=== PATIENT | female | born 1975 | race Caucasian/White ===

== ENCOUNTER 2024-12-03 02:18 | Inpatient (IN) | payer BC, MEDICAID, OTHER ==
[~2024-12-03] VITALS: Ht 167.6 cm; Wt 69.5 kg
--- NOTE | 2024-12-03 02:40 | ED.PDOC ---
History of Present Illness HPI Comments 49 y/o F, with a Hx of NH s/p 2x cardiac ablations, lupus, ASA use, and cholecystectomy, is BIBA for c/o chest and back pain, nausea, vomiting, diaphoresis, and hot flashes, today. Per EMS report, patient endorses on sudden and unprovoked onset of symptoms that began with chest pain that radiates straight to her back, this morning. She comments on symptoms getting progressively worse since and rates pain as a 10/10 in severity and describes it as "crushing" in quality. En route, patient was stated to have been given 1x NTG and 4mg Zofran IV s/p IV access placement. 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 Burnett," and being on her menstrual period, currently. She denies having any palpitations, shortness of breath, dizziness, hematemesis, fever, chills, or other associated symptoms or modifiers at this time. Time Seen by MD: 02:25 Reviewed Notes: Nurses Notes, Tank Bottom Assembler Notes, Medications, Allergies Allergies: Coded Allergies: NO KNOWN ALLERGIES (Unverified , 12/03/24) Information Source: Emergency Med Personnel Mode of Arrival: EMS Severity: Moderate Timing: Hours Duration: Since onset Prehospital treatment: None Past Medical History PAST MEDICAL HISTORY: NH Past Medical History (Other): ASA use, lupus Surgical History: Cholecystectomy, (4x) Surgical History (Other): 2x cardiac ablations [employer] History: Denies all [employer] Hx LMP on menstrual cycle, currently Family History Family History: Unknown Social History Smoker: Non-Smoker Alcohol: Denies ETOH Use Drugs: Denies Drug Use Lives In: Home Constitutional: reports: diaphoresis, others (hot flashes ) Cardiovascular: reports: chest pain Gastrointestinal: reports: nausea, vomiting Musculoskeletal: reports: back pain All Other Systems: Reviewed and Negative (negative unless otherwise stated above or in HPI) Physical Exam General Appearance: No Apparent Distress, Normal HEENT: Normal ENT Inspection, Pharynx Normal, TMs Normal Neck: Full Range of Motion, Non-Tender, Normal, Normal Inspection Respiratory: Chest Non-Tender, Lungs Clear, No Accessory Muscle Use, No Respiratory Distress, Normal Breath Sounds Cardiovascular: No Edema, No JVD, No Murmur, No Gallop, Normal Peripheral Pulses, Regular Rate/Rhythm Breast Exam: Deferred Gastrointestinal: No Organomegaly, Non Tender, No Pulsatile Mass, Normal Bowel Sounds, Soft Genitalia: Deferred Pelvic: Deferred Rectal: Deferred Extremities: No calf tenderness, Normal capillary refill, Normal inspection, Normal range of motion, Non-tender, No pedal edema Musculoskeletal : Apperance: Normal Neurologic: Alert, 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 Was a procedure done?: No EKG EKG : Pulse Rate (adult): [address] [place]: Normal Cardiac Rhythm: NSR Block: None Hypertrophy: None ST: Normal Differential Dx Considerations may include: NH, PE, ACS, pericarditis, costochondritis, gastritis, gastroenteritis, angina, anxiety, viral syndrome, musculoskeletal pain X-Ray, Labs, Meds, VS Vital Signs Date Time Temp Pulse Resp B/P (MAP) Pulse Ox O2 Delivery O2 Flow Rate FiO2 12/03/24 03:15 69 12/03/24 02:40 70 12/03/24 02:23 77 12/03/24 02:23 98.6 77 19 126/91 (103) 100 12/03/24 02:20 70 Lab Test 12/03/24 03:34 12/03/24 02:35 Range/Units Sodium Level 137 136-145 mmol/L Potassium Level 4.4 3.5-5.1 mmol/L Chloride Level 107 98-107 mmol/L Carbon Dioxide Level 22 20-31 mmol/L Anion Gap 8 5-15 Blood Urea Nitrogen 12 9-23 mg/dL Creatinine 0.83 0.550-1.02 mg/dL Glomerular Filtration Rate Calc 87 >90 mL/min BUN/Creatinine Ratio 14.5 10.0-20.0 Serum Glucose 82 74-106 mg/dL Calcium Level 10.4 8.7-10.4 mg/dL Troponin I High Sensitivity 119 *H 88 *H </=34 ng/L White Blood Count 6.6 4.4-10.8 10^3/uL Red Blood Count 5.29 H 4.0-5.20 10^6/uL Hemoglobin 14.7 12.2-16.2 g/dL Hematocrit 43.5 36.0-46.0 % Mean Corpuscular Volume 82.3 80.0-100.0 fL Mean Corpuscular Hemoglobin 27.8 L 28.0-32.0 pg Mean Corpuscular Hemoglobin Concent 33.8 32.0-36.0 g/dL Red Cell Distribution Width 33.7 H 11.8-14.3 % Platelet Count 384 140-450 10^3/uL Mean Platelet Volume 8.8 6.9-10.8 fL Neutrophils (%) (Auto) 66.4 37.0-80.0 % Lymphocytes (%) (Auto) 21.1 10.0-50.0 % Monocytes (%) (Auto) 9.9 0.0-12.0 % Eosinophils (%) (Auto) 1.2 0.0-7.0 % Basophils (%) (Auto) 1.4 0.0-2.0 % Neutrophils # (Auto) 4.4 1.6-8.6 10 ^3/uL Lymphocytes # (Auto) 1.4 0.4-5.4 10 ^3/uL Monocytes # (Auto) 0.7 0-1.3 10 ^3/uL Eosinophils # (Auto) 0.1 0-0.8 10 ^3/uL Basophils # (Auto) 0.1 0-0.2 10 ^3/uL Nucleated Red Blood Cells 0.0 % Platelet Estimate Adequate Large Platelets Few Anisocytosis (manual) Moderate Target Cells Few Schistocytes Few B-Type Natriuretic Peptide 16.71 0-100 pg/mL Current Medications Medications (Trade) Dose Ordered Sig/[place] Route Start Time Stop Time Status Last Admin Famotidine (Pepcid Injection) 20 mg ONCE ONCE IV 12/03/24 02:30 12/03/24 02:31 DC 12/03/24 02:49 Ketorolac Tromethamine (Toradol Injection) 15 mg ONCE ONCE IV 12/03/24 02:30 12/03/24 02:31 DC 12/03/24 02:49 Ondansetron HCl (Zofran) 4 mg ONCE ONCE IV 12/03/24 02:30 12/03/24 02:31 DC 12/03/24 02:49 Time of 1ST Reevaluation: 02:55 Reevaluation 1ST: Unchanged Patient Education/Counseling: Diagnosis, Treatment Family Education/Counseling: No Family Present Comments The following tests were ordered, and results were reviewed by me: EKG, CXR, CBC, BMP, BNP, troponin Additional Information was gathered from interviewing the following independent historians: EMT I reviewed and agreed with the following test results read by other providers: CXR I discussed treatment and results with medical personnel Departure 1 Departure Time of Disposition: 04:33 (Patient presented with chest pain that was concerning for possible STEMI, ACS, PE, Pneumonia, Muscle Strain, COPD, D issection. Data: 1. I ordered and reviewed the result of at least 3 labs including a CBC, BMP, and Troponin. 2. I independently interpreted the following tests: EKG which shows _ sinus arrhythmia and Chest X-ray which shows benign chest.Risk:This patient has a high risk of morbidity due to further diagnostic testing or treatment and may suffer from an acute cardiac or respiratory d isorder. Workup reveals concern for ACS and patient should be admitted for further workup and possible expert consultation. ) Impression: Primary Impression: Acute chest pain Disposition: ADMITTED INPATIENT Admit to: Med Surg Condition: Serious Critical Care Note Critical Care Time?: No Stability Stability form required: No Heart Score Heart Score: Heart Score Response (Comments) Value History N/A 0 EKG N/A 0 Age 45-64 1 Risk Factors 1 or 2 risk factors 1 Troponin N/A 0 Total 2 I personally scribed for COOKIE WAGGONER MD ([email or web address]) on 12/03/24 at 02:40. Electronically submitted by Riley Crook ([email or web address]). COOKIE WAGGONER MD Dec 03, 2024 02:40
[2024-12-03 02:48] LABS: Basophils # (auto) 0.1 10 ^3/uL (0-0.2); Basophils % (auto) 1.4 % (0.0-2.0); Eosinophils # (auto) 0.1 10 ^3/uL (0-0.8); Eosinophils % (auto) 1.2 % (0.0-7.0); Hematocrit 43.5 % (36.0-46.0); Hemoglobin 14.7 g/dL (12.2-16.2); Lymphocytes # (auto) 1.4 10 ^3/uL (0.4-5.4); Lymphocytes % (auto) 21.1 % (10.0-50.0); Mean Corpuscular Hemoglobin 27.8 pg (28.0-32.0); Mean Corpuscular Hgb Conc. 33.8 g/dL (32.0-36.0); Mean Corpuscular Volume 82.3 fL (80.0-100.0); Monocytes # (auto) 0.7 10 ^3/uL (0-1.3); Monocytes % (auto) 9.9 % (0.0-12.0); Neutrophils # (auto) 4.4 10 ^3/uL (1.6-8.6); Neutrophils % (auto) 66.4 % (37.0-80.0); Platelet Count (auto) 384 10^3/uL (140-450); Red Blood Cells 5.29 10^6/uL (4.0-5.20); White Blood Cell 6.6 10^3/uL (4.4-10.8)
[2024-12-03] MEDS: ONDANSETRON HCL 4 MG/2 ML VIAL IV ONE ×2 (02:49→04:52)
[2024-12-03] MEDS: KETOROLAC TROMETH 30 MG/ML 1ML VIAL IV ONE (02:49)
[2024-12-03] MEDS: FAMOTIDINE (10MG/ML) 2ML VL IV ONE (02:49)
[2024-12-03 02:53] LABS: Red Cell Distribution Width 33.7 % (11.8-14.3)
[2024-12-03 04:23] LABS: Chloride 107 mmol/L (98-107); Potassium 4.4 mmol/L (3.5-5.1); Sodium 137 mmol/L (136-145)
[2024-12-03 04:24] LABS: Anion Gap 8 (5-15); Calcium 10.4 mg/dL (8.7-10.4); Carbon Dioxide 22 mmol/L (20-31)
[2024-12-03 04:26] LABS: Anisocytosis Moderate; Large Platelets FEW; Platelet Estimate Adequate; Target Cell FEW
[2024-12-03 04:29] LABS: BUN/Creatinine Ratio 14.5 (10.0-20.0); Blood Urea Nitrogen 12 mg/dL (9-23); Glucose 82 mg/dL (74-106)
[2024-12-03] MEDS: MORPHINE SULFATE 4 MG/ML SYR/VIAL IV ONE (04:52)
--- NOTE | 2024-12-03 06:02 | DVH ---
CHEST RADIOGRAPH Indication: Chest pain Technique: Single frontal view of the chest was obtained Comparison: None FINDINGS: Lines and Tubes: None Lungs: No focal consolidation. Pleura: No effusion. No pneumothorax. Cardiomediastinal contours: Unremarkable Bones: No acute osseous abnormality. IMPRESSION: 1. No acute cardiopulmonary disease.
[2024-12-03] MEDS: ENOXAPARIN SOD 100 MG/1 ML SYRINGE SC ONE (06:34)
--- NOTE | 2024-12-03 06:41 | ECG ---
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
--- NOTE | 2024-12-03 06:41 | ECG ---
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
--- NOTE | 2024-12-03 06:41 | ECG ---
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
[2024-12-03] MEDS ORDERED: NITROGLYCERIN 0.4 MG SL TAB SL PRN (07:30)
[2024-12-03] MEDS: SODIUM CHLORIDE 0.9% 1,000 ML IV SCH (07:30)
--- NOTE | 2024-12-03 07:34 | DVHHP2 ---
History of Present Illness Reason for Visit: Chest pain History of Present Illness Shelby Bassett is a 49 year female with past medical history of hyperlipidemia, CA in 2021 status post cardiac ablation x2 1 at [facility] and the other at [facility] several months within 1 another, lupus, cholecystectomy, tonsillectomy, and who presents to the ED for chest pain, palpitations, nausea, vomiting, and diaphoresis x2 days. Patient states that the pain started around 3:30 p.m. yesterday when she was running errands and she suddenly became dizzy it was midsternal, crushing in nature intermittent in 10/10 pain. Patient reports that the pain did not radiate anywhere. Patient has also reports that around 730-8 p.m. that night she started to have nausea and vomiting with food contents. Patient then had her spouse call EMS. Patient also states that the cardiac ablation that was done was because she was in [facility] and repeated because the 1st was unsuccessful. Patient denies any recent sick contacts, trauma or injury, abdominal pain, diarrhea, fever, chills, and headaches. Upon examination in the ED, current pain is 9/10 "feels like bricks are sitting on my chest" hand is constant. Patient reports that her left lower extremity does get more edematous than her right but upon examination no swelling noted. Patient states that is because she took her Lasix. Cardiovascular: CA, hyperipidemia Past Medical History Lupus Past Surgical History: Cholecystectomy, , Other (Cardiac ablation) Family History: Other (Mom and dad with heart disease) Smoke: No ALCOHOL: none Drugs: None Lives: with Family Domestic Violence: Neg Review of Systems Constitutional: Yes: Sweats; No: Fever, Chills, Weakness, Malaise, Other Eyes: No: Pain, Vision change, Conjunctivae inflammation, Eyelid inflammation, Other, Redness ENT: No: Ear pain, Ear discharge, Nose pain, Nose discharge, Nose congestion, Mouth pain, Mouth swelling, Throat pain, Throat swelling, Other Respiratory: No: Cough, Dry, Shortness of breath, SOB with excertion, Wheezing, Hemoptysis, Pleuritic Pain, Sputum, Wheezing, Other Cardiovascular: Chest Pain, Palpitations; No: Orthopnea, Paroxysmal Noc. Dyspnea, Edema, Lt Headedness, Other Gastrointestinal: Nausea, Vomiting; No: Abdominal Pain, Diarrhea, Constipation, Melena, Hematochezia, Other Genitourinary: No Dysuria, No Frequency, No Incontinence, No Hematuria, No Retention, No Other Musculoskeletal: No: other, neck pain, shoulder pain, arm pain, back pain, hand pain, leg pain, foot pain Skin: No: Rash, Lesions, Jaundice, Bruising, Other Neurological: No: Weakness, Numbness, Incoordination, Change in speech, Confusion, Seizures, Other Allergies: Coded Allergies: NO KNOWN ALLERGIES (Unverified , 12/03/24) Medications Current Medications Medications Dose Ordered Sig/[place] Route Start Time Stop Time Status Last Admin Dose Admin Sodium Chloride 1,000 ml @ 60 mls/hr [id number] IV 12/03/24 07:30 UNV Acetaminophen/ Hydrocodone Bitart 1 tab Q4HP PRN PO 12/03/24 07:30 UNV Ondansetron HCl 4 mg Q4HP PRN IV 12/03/24 07:30 UNV Acetaminophen 650 mg Q6HP PRN PO 12/03/24 07:30 UNV Morphine Sulfate 2 mg Q4HPRN PRN IV 12/03/24 07:30 UNV Nitroglycerin 0.4 mg Q5MINP PRN SL 12/03/24 07:30 UNV Morphine Sulfate 2 mg Q30M PRN IV 12/03/24 07:30 UNV Exam Vital Signs Vital Signs Date Time Temp Pulse Resp B/P (MAP) Pulse Ox O2 Delivery O2 Flow Rate FiO2 12/03/24 06:09 Room Air* 0 21 12/03/24 06:00 67 14 118/85 (96) 97 12/03/24 02:23 98.6 General Appearance: Alert, Oriented X3, Cooperative, mild distress HEENT: Atraumatic, PERRLA, EOMI, Mucous membr. moist/pink Respiratory: Clear to auscultation, Normal air movement Cardiovascular: Regular rate, Normal S1, Normal S2, No murmurs Abdominal: Normal bowel sounds, Soft, No tenderness, No hepatospenomegaly, No masses Extremities: No clubbing, No cyanosis, No edema, Normal pulses, No tenderness/swelling Skin: No rashes, No breakdown, No significant lesion Neuro: Normal gait, Normal speech, Strength at 5/5 X4 ext, Normal tone, Sensation intact Psych/Mental Status: Mental status NL, Mood NL Labs/Xrays Labs Test 12/03/24 05:35 12/03/24 03:34 12/03/24 02:35 Range/Units Troponin I High Sensitivity 168 *H </=34 ng/L Sodium Level 137 136-145 mmol/L Potassium Level 4.4 3.5-5.1 mmol/L Chloride Level 107 98-107 mmol/L Carbon Dioxide Level 22 20-31 mmol/L Anion Gap 8 5-15 Blood Urea Nitrogen 12 9-23 mg/dL Creatinine 0.83 0.550-1.02 mg/dL Glomerular Filtration Rate Calc 87 >90 mL/min BUN/Creatinine Ratio 14.5 10.0-20.0 Serum Glucose 82 74-106 mg/dL Calcium Level 10.4 8.7-10.4 mg/dL White Blood Count 6.6 4.4-10.8 10^3/uL Red Blood Count 5.29 H 4.0-5.20 10^6/uL Hemoglobin 14.7 12.2-16.2 g/dL Hematocrit 43.5 36.0-46.0 % Mean Corpuscular Volume 82.3 80.0-100.0 fL Mean Corpuscular Hemoglobin 27.8 L 28.0-32.0 pg Mean Corpuscular Hemoglobin Concent 33.8 32.0-36.0 g/dL Red Cell Distribution Width 33.7 H 11.8-14.3 % Platelet Count 384 140-450 10^3/uL Mean Platelet Volume 8.8 6.9-10.8 fL Neutrophils (%) (Auto) 66.4 37.0-80.0 % Lymphocytes (%) (Auto) 21.1 10.0-50.0 % Monocytes (%) (Auto) 9.9 0.0-12.0 % Eosinophils (%) (Auto) 1.2 0.0-7.0 % Basophils (%) (Auto) 1.4 0.0-2.0 % Neutrophils # (Auto) 4.4 1.6-8.6 10 ^3/uL Lymphocytes # (Auto) 1.4 0.4-5.4 10 ^3/uL Monocytes # (Auto) 0.7 0-1.3 10 ^3/uL Eosinophils # (Auto) 0.1 0-0.8 10 ^3/uL Basophils # (Auto) 0.1 0-0.2 10 ^3/uL Nucleated Red Blood Cells 0.0 % Platelet Estimate Adequate Large Platelets Few Anisocytosis (manual) Moderate Target Cells Few Schistocytes Few B-Type Natriuretic Peptide 16.71 0-100 pg/mL CHEST RADIOGRAPH Indication: Chest pain Technique: Single frontal view of the chest was obtained Comparison: None FINDINGS: Lines and Tubes: None Lungs: No focal consolidation. Pleura: No effusion. No pneumothorax. Cardiomediastinal contours: Unremarkable Bones: No acute osseous abnormality. IMPRESSION: 1. No acute cardiopulmonary disease. Assessment/Plan Assessment/Plan Assessment/Plan: Chest pain rule out cardiac ischemia Elevated troponins History of CA in 2021 History of cardiac ablation x2 Lovenox therapeutic given in ED Chest x-ray Antiemetics Pain management Labs A.m. labs Famotidine RBC morph EKG Trend troponin BNP UDS Lipid panel TSH Echo ordered Cardiology consult acs protocol asa statin - patient takes 80mg atorvastatin at home JACKIE Angio scheduled for tomorrow morning per Cardiology Chronic lupus Continue home medications-gabapentin, lisinopril and Benlysta Chronic hyperlipidemia continue home medications, atorvastatin FEN/PPX diet IV fluid DVT prophylaxis - lovenox therapeutic per cards PUD prophylaxis-continue home medication, Protonix home medications reconciled discussed plan of care with patient and nurse Admit to tele Plan discussed with: Patient My Orders Orders - JASON FOOTE Procedure Category Date Status Time * Cardiology Consult CONS 12/03/24 Transmitted 06:58 Admit ADMIT 12/03/24 Transmitted 07:28 Allergies NICHOLAS 12/03/24 In Process 07:28 Code Status CODE 12/03/24 Transmitted 07:28 Sodium Chloride 0.9% PHA 12/03/24 Logged 07:30 Hydrocodone-Acet PHA 12/03/24 Logged 5/325mg Tab ([place] 07:30 Ondansetron Hcl PHA 12/03/24 Logged (Zofran) 07:30 Complete Blood Count LAB 12/04/24 Verified 04:00 Comprehensive LAB 12/04/24 Verified Metabolic Panel 04:00 Npo (Nothing By DIET 12/03/24 Transmitted Mouth) Diet Breakfast Echo 2d Mode Cardiac US 12/03/24 Logged DOP 07:28 Acetaminophen Tablet PHA 12/03/24 Logged (Tylenol Tablet) 07:30 Morphine Sulfate PHA 12/03/24 Logged Injection 07:30 Nitroglycerin [facility] 12/03/24 Logged Sublingual (Ntrostat 07:30 Morphine Sulfate PHA 12/03/24 Logged Injection 07:30 Stat Ekg For Chest [facility] 12/03/24 In Process Pain 07:28 Notify Of Changes [facility] 12/03/24 In Process From Base 07:28 Lift Team Technician For [facility] 12/03/24 In Process 24 Hours 07:28 Emergency Dysrhythmia [facility] 12/03/24 In Process Protocol 07:28 Rhythm Strips Once [facility] 12/03/24 In Process Every Shift 07:28 Oxygen By Nasal RT 12/03/24 Transmitted Cannula 07:28 Drug Screen LAB 12/03/24 Transmitted 07:29 Thyroid Stimulating LAB 12/03/24 Transmitted Hormone 07:29 Lipid Panel LAB 12/03/24 Transmitted 07:29 Date of Service: Dec 03, 2024 Billing Provider: JASON FOOTE Common Visit Codes: [id number] INP/OBS CARE (HIGH) JASON FOOTE Dec 03, 2024 07:34
[2024-12-03 07:50] LABS: Triglycerides 83 mg/dL (< 150)
[2024-12-03 07:52] LABS: Cholesterol 188 mg/dL (< 200)
[2024-12-03 07:54] LABS: HDL Cholesterol 70 mg/dL (40-59); LDL Cholesterol 107 mg/dL (< 100)
[2024-12-03] MEDS ORDERED: GABA800T97 (08:00)
[2024-12-03] MEDS ORDERED: PANT40T (08:00)
[2024-12-03] MEDS ORDERED: FURO20TA4 (08:00)
[2024-12-03] MEDS ORDERED: BELI200I (08:00)
[2024-12-03] MEDS ORDERED: LISI2.5T47 (08:00)
[2024-12-03] MEDS ORDERED: ASPI1CHW5 PO (08:00)
[2024-12-03] MEDS ORDERED: ATOR-47 PO (08:00)
[2024-12-03] MEDS: ASPirin 325 MG TAB PO ONE (09:00)
[2024-12-03] MEDS: ONDANSETRON HCL 4 MG/2 ML VIAL IV PRN (09:08)
[2024-12-03] MEDS: MORPHINE SULFATE INJ 2 MG/ml SYRG IV PRN (09:08)
[2024-12-03] MEDS: ENOXAPARIN SOD 100 MG/1 ML SYRINGE SC SCH (10:00)
[2024-12-03] MEDS: ASPirin 81 mg TAB PO SCH (10:00)
[2024-12-03 10:16] LABS: Amphetamine Screen, Urine Neg (NEGATIVE); Barbiturate Scree,Urine Neg (NEGATIVE); Benzodiazephine Screen, Urine Neg (NEGATIVE); Cannabinoid Screen, Urine Neg (NEGATIVE); Cocaine Screen, Urine Neg (NEGATIVE); Opiate Scree,Urine Pos (NEGATIVE); Phencyclidine Screen, Urine Neg (NEGATIVE)
--- NOTE | 2024-12-03 11:10 | DVHINCON2 ---
Date of service: Dec 03, 2024 History of Present Illness HPI Patient is a 49-year-old female who presented with 1 day of chest discomfort, nausea/vomiting and back pain. She is experiencing her menstrual period. She denies having/discomforts before. Cardiology was involved for cardiac catheterization with self-care. Patient is known to our practice from outside. Patient does have old history of repeated PVC ablation many years ago. She also had a nuclear stress test in August 2023 which questioned inferior wall NM. she stopped smoking over 15 years ago. She denies drug abuse. Home Meds Reported Medications Lisinopril (Lisinopril) 2.5 Mg Tab, 1 DAILY 12/03/24 Atorvastatin Calcium (ATORVASTATIN CALCIUM) 80 Mg Tab, 1 TAB PO DAILY 12/03/24 Gabapentin (Gabapentin) 800 Mg Tab, 1 12/03/24 Belimumab (Benlysta) 200 Mg/Ml Inj 12/03/24 Aspirin (Chewable Aspirin) 81 Mg Chw, 1 TAB PO DAILY 12/03/24 Furosemide (Furosemide) 20 Mg Tab, 1 DAILY 12/03/24 Pantoprazole Sodium Sesquihydr (Pantoprazole Sodium) 40 Mg Tab, 1 DAILY 12/03/24 Past Medical History Others Past medical history includes lupus, old history of repeated ablation for frequent PVC, old history of cholecystectomy/, fibromyalgia, anemia, proteinuria and questionable history of myocardial infarction (nuclear stress t est, performed in the office, in August 2023 had questioned previous inferior wall NM). Does have positive family for coronary artery disease. Family History: CAD Smoker: Quit Alocohol: None Drugs: None Lives with: With family Review of Systems Pulmonary/Respiratory: Dyspnea, Pleuritic Chest Pain Cardiovascular: Chest Pain Gastrointestinal: Nausea, Vomiting All Other Systems Fourteen point review of system was performed. Relevant findings as per above and as per HPI. Otherwise negative. H&P Exam Vital Signs Vital Signs Date Time Temp Pulse Resp B/P (MAP) Pulse Ox O2 Delivery O2 Flow Rate FiO2 12/03/24 09:42 69 12 116/77 (90) 97 12/03/24 06:09 Room Air* 0 12/03/24 02:23 98.6 General Appeara: Well developed Head Exam: Normal inspection Eye Exam: bilateral eye PERRL Mouth: Normal Inspection Pulmonary/Respiratory: Normal breath sounds, Lungs clear Cardiovascular/Chest: Normal inspection, Regular rate, Systolic murmur Peripheral Pulses: 2+ carotid (R), 2+ carotid (L), 2+ femoral (R), 2+ femoral (L), 2+ dorsalis pedis (R), 2+ dorsalis pedis (L), 2+ Radial (R), 2+ Radial (L) Abdominal Exam: Normal bowel sounds, Soft, No tenderness, No hepatospenomegaly Neuro/Mental St: Alert, Oriented Appearance: Appropriate appearance Eye contact/ Speech: Cooperative Labs/Xrays Labs Test 12/03/24 09:40 12/03/24 05:35 12/03/24 03:34 12/03/24 02:35 Range/Units Urine Opiates Screen Pos NEGATIVE Urine Fentanyl Screen Neg NEGATIVE Urine Barbiturates Screen Neg NEGATIVE Urine Phencyclidine Screen Neg NEGATIVE Urine Amphetamines Screen Neg NEGATIVE Urine Benzodiazepines Screen Neg NEGATIVE Urine Cocaine Screen Neg NEGATIVE Urine Cannabinoids Screen Neg NEGATIVE D-Dimer, Quantitative 0.43 0.0-0.49 mg/L FEU Troponin I High Sensitivity 168 *H </=34 ng/L Sodium Level 137 136-145 mmol/L Potassium Level 4.4 3.5-5.1 mmol/L Chloride Level 107 98-107 mmol/L Carbon Dioxide Level 22 20-31 mmol/L Anion Gap 8 5-15 Blood Urea Nitrogen 12 9-23 mg/dL Creatinine 0.83 0.550-1.02 mg/dL Glomerular Filtration Rate Calc 87 >90 mL/min BUN/Creatinine Ratio 14.5 10.0-20.0 Serum Glucose 82 74-106 mg/dL Calcium Level 10.4 8.7-10.4 mg/dL Triglycerides Level 83 < 150 mg/dL Cholesterol Level 188 < 200 mg/dL LDL Cholesterol 107 H < 100 mg/dL HDL Cholesterol 70 H 40-59 mg/dL Thyroid Stimulating Hormone (TSH) 1.96 0.55-4.78 uIU/mL White Blood Count 6.6 4.4-10.8 10^3/uL Red Blood Count 5.29 H 4.0-5.20 10^6/uL Hemoglobin 14.7 12.2-16.2 g/dL Hematocrit 43.5 36.0-46.0 % Mean Corpuscular Volume 82.3 80.0-100.0 fL Mean Corpuscular Hemoglobin 27.8 L 28.0-32.0 pg Mean Corpuscular Hemoglobin Concent 33.8 32.0-36.0 g/dL Red Cell Distribution Width 33.7 H 11.8-14.3 % Platelet Count 384 140-450 10^3/uL Mean Platelet Volume 8.8 6.9-10.8 fL Neutrophils (%) (Auto) 66.4 37.0-80.0 % Lymphocytes (%) (Auto) 21.1 10.0-50.0 % Monocytes (%) (Auto) 9.9 0.0-12.0 % Eosinophils (%) (Auto) 1.2 0.0-7.0 % Basophils (%) (Auto) 1.4 0.0-2.0 % Neutrophils # (Auto) 4.4 1.6-8.6 10 ^3/uL Lymphocytes # (Auto) 1.4 0.4-5.4 10 ^3/uL Monocytes # (Auto) 0.7 0-1.3 10 ^3/uL Eosinophils # (Auto) 0.1 0-0.8 10 ^3/uL Basophils # (Auto) 0.1 0-0.2 10 ^3/uL Nucleated Red Blood Cells 0.0 % Platelet Estimate Adequate Large Platelets Few Anisocytosis (manual) Moderate Target Cells Few Schistocytes Few B-Type Natriuretic Peptide 16.71 0-100 pg/mL Assessment/Plan Plan Patient is a 49-year-old female who presented with 1 day of chest discomfort, nausea/vomiting and back pain. She is experiencing her menstrual period. She denies having/discomforts before. Cardiology was involved for cardiac catheterization with self-care. Patient is known to our practice from outside. Patient does have old history of repeated PVC ablation many years ago. She also had a nuclear stress test in August 2023 which questioned inferior wall NM. she stopped smoking over 15 years ago. She denies drug abuse. She has been experiencing left lower extremity pain and discomfort and swelling for months. Not in acute distress. Lying flat bed. No JVD. Mucosa is pink and wet. No carotid bruit. Not using accessory muscles of breathing. Lungs are clear to auscultation. Cardiac: Regular, no thrill/gallop. Systolic murmur in the apex is heard. Abdomen is soft. There is no tenderness. Bowel sound is positive. Extremities do not reveal edema. Past medical history includes lupus, old history of repeated ablation for frequent PVC, old history of cholecystectomy/, fibromyalgia, anemia, proteinuria and questionable history of myocardial infarction (nuclear stress test, performed in the office, in August 2023 had questioned previous inferior wall NM). Does have positive family for coronary artery disease. Creatinine: 0.83 Potassium: 4.4 Troponin (high sensitive): 88-119-168 BNP: 16.71 D-dimer: 0.43 TSH: 1.96 Urine toxicology was positive for opiates Chest x-ray revealed: EKG revealed sinus rhythm with questionable old septal NM, no specific ST-T changes Tele reveals sinus rhythm Patient is a 49-year-old female who presented with back pain, chest pain, nausea and vomiting. Does have old history of questionable myocardial infarction. Does have positive family history for coronary artery disease. It is of note that the patient does have lupus and gets IVIG treatment every 2 weeks. She is found to have somehow abnormal troponin. NSTEMI/unstable angina can not be ruled out. Chest pain Abnormal troponin Lupus Fibromyalgia Old history of PVC ablation Anemia Proteinuria Cardiac suggestion for management: Managed on telemetry Follow-up electrolytes and kidney function tests and correct abnormalities Echocardiogram Followups serial troponin to identify the peak May proceed with ischemic workup/cardiac catheterization tomorrow morning Further evaluation and management depends on the above and clinical course Thank you for consultation A total of 75 minutes was spent reviewing the patient record, examining the patient, making a diagnostic and therapeutic plan, discussing this plan with medical personnel, following up on diagnostic studies and following the patient for clinical stability excluding any and all procedures. At least 50% of this time was spent in direct, [id number] contact. Thank you for allowing me to participate in this patient's care. Further recommendations will depend on patient's clinical course. Please do not hesitate to contact me if you have any questions or concerns. This medical document was created using electronic medical record system with [employer] computerized dictation system. Although this document has been carefully reviewed, there may still be some phonetic and typographical errors. These areas are purely typographical due to the imperfection of the software programs, and do not reflect any compromise in the patient's medical care. Plan discussed with: Patient, Other (nurse) JEFFREY RUDOLPH MD Dec 03, 2024 11:10
--- NOTE | 2024-12-03 11:36 | DVHPN2 ---
Subjective c/o CP Changes from previous H/P or p: Changes Eyes: No Pain, No Vision change, No Conjunctivae inflammation, No Eyelid inflammation, No Other, No Redness ENT: No Ear pain, No Ear discharge, No Nose pain, No Nose discharge, No Nose congestion, No Mouth pain, No Mouth swelling, No Throat pain, No Throat swelling, No Other Cardiovascular: Chest Pain, Palpitations; No Orthopnea, No Paroxysmal Noc. Dyspnea, No Edema, No Lt Headedness, No Other Respiratory: No Cough, No Dry, No Shortness of breath, No SOB with excertion, No Wheezing, No Hemoptysis, No Pleuritic Pain, No Sputum, No Other Gastrointestinal: Nausea, Vomiting; No Abdominal Pain, No Diarrhea, No Constipation, No Melena, No Hematochezia, No Other Genitourinary: No Dysuria, No Frequency, No Incontinence, No Hematuria, No Retention, No Other Musculoskeletal: No other, No neck pain, No shoulder pain, No arm pain, No back pain, No hand pain, No leg pain, No foot pain Skin: No Rash, No Lesions, No Jaundice, No Bruising, No Other Objective Vitals Vital Signs Date Time Temp Pulse Resp B/P (MAP) Pulse Ox O2 Delivery O2 Flow Rate FiO2 12/03/24 10:43 67 11 103/61 12/03/24 09:42 97 12/03/24 06:09 Room Air* 0 21 12/03/24 02:23 98.6 General Appearance: Alert, Oriented X3, Cooperative, No acute distress Lungs: Clear to auscultation, Normal air movement Cardiovascular: Regular rate, Normal S1, Normal S2 Abdomen: Normal bowel sounds, Soft, No tenderness Extremities: No edema Medications Current Medications Medications Dose Ordered Sig/Frederick Route Start Time Stop Time Status Last Admin Dose Admin Sodium Chloride 1,000 ml @ 60 mls/hr [id number] IV 12/03/24 07:30 12/03/24 07:30 60 MLS/HR Acetaminophen/ Hydrocodone Bitart 1 tab Q4HP PRN PO 12/03/24 07:30 Ondansetron HCl 4 mg Q4HP PRN IV 12/03/24 07:30 12/03/24 09:08 4 MG Acetaminophen 650 mg Q6HP PRN PO 12/03/24 07:30 Morphine Sulfate 2 mg Q4HPRN PRN IV 12/03/24 07:30 Nitroglycerin 0.4 mg Q5MINP PRN SL 12/03/24 07:30 Morphine Sulfate 2 mg Q30M PRN IV 12/03/24 07:30 12/03/24 09:08 2 MG Aspirin 81 mg DAILY PO 12/03/24 10:00 Atorvastatin Calcium 80 mg HS PO 12/03/24 22:00 Enoxaparin Sodium 60 mg Q12HR SC 12/03/24 10:00 12/03/24 10:00 60 MG Duloxetine HCl 60 mg BID PO 12/03/24 22:00 UNV Laboratory Results Laboratory Tests 12/03/24 02:35 12/03/24 03:34 Chemistry Test 12/03/24 03:34 Calcium Level 10.4 mg/dL (8.7-10.4) Coagulation Test 12/03/24 05:35 D-Dimer, Quantitative 0.43 mg/L FEU (0.0-0.49) Lipid panel Test 12/03/24 03:34 Cholesterol Level 188 mg/dL (< 200) HDL Cholesterol 70 mg/dL (40-59) H Triglycerides Level 83 mg/dL (< 150) Cardiac Markers Test 12/03/24 02:35 B-Type Natriuretic Peptide 16.71 pg/mL (0-100) HgA1c, TSH Test 12/03/24 03:34 Thyroid Stimulating Hormone (TSH) 1.96 uIU/mL (0.55-4.78) Assessment/Plan Assessment/Plan Chest pain NSTEMI type 2 Lupus Fibromyalgia [place] Cardiac ablation x2 Mixed hyperlipidemia PLAN: DC IV fluids Aspirin Lipitor Duloxetine Tazodone Gabapentin Echo Cardiology consult D-Dimer neg Possible heart cath by Dr. Moss Full code Advance directives discussed x 18 minutes Plan discussed with: Patient My Orders Orders - JAYJAY GAONA MD Procedure Category Date Status Time Duloxetine Hcl PHA 12/03/24 Logged Capsule (Cymbalta 22:00 Duloxetine Hcl PHA 12/03/24 Logged Capsule (Cymbalta 11:15 Date of Service: Dec 03, 2024 Billing Provider: JAYJAY GAONA MD Common Visit Codes: 02310-[id number] INP/OBS CARE(HIGH) Secondary Visit Codes: [id number] CARE PLAN 30 MINUTES JAYJAY GAONA MD Dec 03, 2024 11:35
[2024-12-03] MEDS: DULoxetine HCL 30 MG CAP PO ONE (12:36)
[2024-12-03 15:10] VITALS: BP 128/94; PULSE 70; RESP 18; TEMP 98.6; O2SAT 99
[2024-12-03] MEDS ORDERED: TRAZ1TAB12 PO (15:37)
[2024-12-03] MEDS ORDERED: HYDR-4491 PO (15:37)
[2024-12-03] MEDS ORDERED: HYDR-4798 PO (15:38)
--- NOTE | 2024-12-03 16:17 | DVHSR ---
APPROVED REPORT EXAM: Two-dimensional and M-mode echocardiogram with Doppler and color Doppler. Blood Pressure: 118/85 mmHg INDICATION Chest Pain RISK FACTORS Height: 66, Weight: 141 DIMENSIONS LVDd4.2 (3.8-5.7cm)LA (2D)3.9 (1.9-4.0cm)Aortic Root2.9 (2.0-3.7cm) LVDs2.8 (2.5-4.0cm)LA (MM) (1.9-4.0cm)Aortic Cusp Exc1.6 (1.5-2.0cm) EF (%) 65.0 (55-70%)Rt. Atrium3.9 (1.9-4.0cm)Asc. Aorta2.6 cm IVSd0.9 (0.7-1.1cm)RV (D) (1.8-2.4cm) PWd0.9 (0.7-1.1cm) Mitral Valve MitralMitral Stenosis E wave0.52m/sMV Mean GR.mmHg A wave0.54m/sMV Peak GR.mmHg E/A ratio1.02D MVAcm2 DECEL [id number] 1/2 [id number] IVRTmsDop MVA1.75cm2 Aortic Valve Aortic ValveAortic Stenosis V10.80m/Dimple Mean GR.2mmHg V20.94m/Dimple Peak GR.4mmHg LVOT Diameter2.1 (1.8-2.4cm)Doppler AVA2.95cm2 Pulmonic Valve V20.73m/s Conclusion Left ventricle: Right ventricle was normal-sized. LVEF was around 55-60%. Can not rule out anteros eptal hypokinesia. Right ventricle was normal-sized with normal systolic function. Both atria were normal-sized. Aortic valve was not well visualized. There was no aortic insufficiency/stenosis. There was no mitr al regurgitation. There was trivial tricuspid regurgitation. Pulmonary valve was not well visualize d. As there was no good tricuspid regurgitation jet, right ventricular systolic pressure could not be es timated. There was no pericardial effusion.
[2024-12-03 17:00] VITALS: BP 110/72; PULSE 68; RESP 19; TEMP 98.6; O2SAT 98
[2024-12-03] MEDS: GABAPENTIN 400 MG CAP PO SCH (17:14)
[2024-12-03 20:00] VITALS: PULSE 65
[2024-12-03] MEDS: traZODone HCL 50 MG TAB PO SCH (21:31)
[2024-12-03] MEDS: ACETAMINOPHEN 325 MG TAB PO PRN (21:31)
[2024-12-03] MEDS: ATORVASTATIN 20 MG TAB PO SCH (21:38)
[2024-12-03] MEDS: DULoxetine HCL 30 MG CAP PO SCH (21:38)
[2024-12-03 22:00] VITALS: BP 126/91; PULSE 76; RESP 18; TEMP 98.1; O2SAT 97
[2024-12-04] VITALS (13 sets, daily range): BP systolic 85–115; BP diastolic 54–79; PULSE 63–97; RESP 13–18; TEMP 97.8–98.3; O2SAT 94–98
[2024-12-04] MEDS: MORPHINE SULFATE INJ 2 MG/ml SYRG IV PRN (05:40)
[2024-12-04 06:49] LABS: Albumin 4.1 g/dL (3.2-4.8); Alkaline Phosphatase 87 U/L (46-116); Anion Gap 7 (5-15); BUN/Creatinine Ratio 20.7 (10.0-20.0); Blood Urea Nitrogen 18 mg/dL (9-23); Calcium 9.7 mg/dL (8.7-10.4); Carbon Dioxide 23 mmol/L (20-31); Glucose 78 mg/dL (74-106); Sodium 137 mmol/L (136-145)
[2024-12-04 06:50] LABS: Total Protein 7.1 g/dL (5.7-8.2)
[2024-12-04 06:51] LABS: Bilirubin, Total 0.5 mg/dL (0.2-1.0)
[2024-12-04 06:52] LABS: INR 1.03 (0.9-1.15); Partial Thromboplastin Time 21.9 SEC (24.5-34.5); Prothrombin Time 10.9 sec (9.3-11.8)
[2024-12-04 07:04] LABS: Alanine Aminotransferase 45 U/L (7-40); Aspartate Aminotransferase 44 U/L (13-40); Chloride 107 mmol/L (98-107)
[2024-12-04 07:09] LABS: Basophils # (auto) 0.1 10 ^3/uL (0-0.2); Eosinophils # (auto) 0 10 ^3/uL (0-0.8); Eosinophils % (auto) 0.7 % (0.0-7.0); Hematocrit 47.3 % (36.0-46.0); Hemoglobin 15.5 g/dL (12.2-16.2); Lymphocytes # (auto) 1.5 10 ^3/uL (0.4-5.4); Mean Corpuscular Hemoglobin 28.2 pg (28.0-32.0); Mean Corpuscular Hgb Conc. 32.8 g/dL (32.0-36.0); Mean Corpuscular Volume 85.9 fL (80.0-100.0); Monocytes # (auto) 0.6 10 ^3/uL (0-1.3); Monocytes % (auto) 9.2 % (0.0-12.0); Neutrophils % (auto) 65.1 % (37.0-80.0); Nucleated Red Blood Cells % 0.2 %; Platelet Count (auto) 166 10^3/uL (140-450); Red Blood Cells 5.51 10^6/uL (4.0-5.20); Red Cell Distribution Width 31.7 % (11.8-14.3); White Blood Cell 6.2 10^3/uL (4.4-10.8)
[2024-12-04] MEDS: IODIXANOL 320MG/ML 100ML BTL IV ONE ×2 (07:39→09:12)
--- NOTE | 2024-12-04 07:50 | DVHPN2 ---
Progress Note - Dictate Date Seen: Dec 04, 2024 Medical Necessity Reason Pt with a Central, PICC or Fol: No vital signs Vital Sign Date Time Temp Pulse Resp B/P (MAP) Pulse Ox O2 Delivery O2 Flow Rate FiO2 12/04/24 05:40 87 18 113/79 12/04/24 05:00 97.9 95 97.9 12/03/24 20:00 Room Air* 0 21 Total Intake and Output 12/03/24 12/03/24 12/04/24 15:00 23:00 07:00 Intake Total 380 ml 0 ml Balance 380 ml 0 ml medications Current Medications Medications Dose Ordered Sig/Frederick Route Start Time Stop Time Status Last Admin Dose Admin Acetaminophen/ Hydrocodone Bitart 1 tab Q4HP PRN PO 12/03/24 07:30 Ondansetron HCl 4 mg Q4HP PRN IV 12/03/24 07:30 12/04/24 05:37 4 MG Acetaminophen 650 mg Q6HP PRN PO 12/03/24 07:30 12/03/24 21:31 650 MG Morphine Sulfate 2 mg Q4HPRN PRN IV 12/03/24 07:30 12/04/24 05:40 2 MG Nitroglycerin 0.4 mg Q5MINP PRN SL 12/03/24 07:30 Morphine Sulfate 2 mg Q30M PRN IV 12/03/24 07:30 12/03/24 17:14 2 MG Aspirin 81 mg DAILY PO 12/03/24 10:00 Atorvastatin Calcium 80 mg HS PO 12/03/24 22:00 Enoxaparin Sodium 60 mg Q12HR SC 12/03/24 10:00 12/03/24 10:00 60 MG Duloxetine HCl 60 mg BID PO 12/03/24 22:00 Trazodone HCl 150 mg HS PO 12/03/24 22:00 12/03/24 21:31 150 MG Gabapentin 800 mg TID PO 12/03/24 14:00 12/03/24 17:14 800 MG laboratory and microbiology Laboratory Tests 12/04/24 06:00 Test 12/04/24 06:00 Range/Units Serum Glucose 78 74-106 mg/dL Assessment/Plan Patient is a 49-year-old female who presented with 1 day of chest discomfort, nausea/vomiting and back pain. She is experiencing her menstrual period. She denies having/discomforts before. Cardiology was involved for cardiac catheterization with self-care. Patient is known to our practice from outside. Patient does have old history of repeated PVC ablation many years ago. She also had a nuclear stress test in August 2023 which questioned inferior wall [place]. she stopped smoking over 15 years ago. She denies drug abuse. She has been experiencing left lower extremity pain and discomfort and swelling for months. Not in acute distress. Lying flat bed. No JVD. Mucosa is pink and wet. No carotid bruit. Not using accessory muscles of breathing. Lungs are clear to auscultation. Cardiac: Regular, no thrill/gallop. Systolic murmur in the apex is heard. Abdomen is soft. There is no tenderness. Bowel sound is positive. Extremities do not reveal edema. Past medical history includes lupus, old history of repeated ablation for frequent PVC, old history of cholecystectomy/, fibromyalgia, anemia, proteinuria and questionable history of myocardial infarction (nuclear stress test, performed in the office, in August 2023 had questioned previous inferior wall [place]). Does have positive family for coronary artery disease. Creatinine: 0.83 - 0.87 Potassium: 4.4 - 4.0 Troponin (high sensitive): 88 - 119 - 168 - 230 - 260 - 265 BNP: 16.71 D-dimer: 0.43 TSH: 1.96 Urine toxicology was positive for opiates D-dimer: 0.43 Chest x-ray revealed: IMPRESSION: 1. No acute cardiopulmonary disease. EKG revealed sinus rhythm with questionable old septal [place], no specific ST-T changes Tele reveals sinus rhythm Echocardiogram revealed: Left ventricle: Right ventricle was normal-sized. LVEF was around 55-60%. Can not rule out anteroseptal hypokinesia. Right ventricle was normal-sized with normal systolic function. Both atria were normal-sized. Aortic valve was not well visualized. There was no aortic insufficiency/stenosis. There was no mitral regurgitation. There was trivial tricuspid regurgitation. Pulmonary valve was not well visualized. As there was no good tricuspid regurgitation jet, right ventricular systolic pressure could not be estimated. There was no pericardial effusion. Patient is a 49-year-old female who presented with back pain, chest pain, nausea and vomiting. Does have old history of questionable myocardial infarction. Does have positive family history for coronary artery disease. It is of note that the patient does have lupus and gets IVIG treatment every 2 weeks. She is found to have somehow abnormal troponin. NSTEMI/unstable angina can not be ruled out. Chest pain Abnormal troponin non-stemi Lupus Fibromyalgia Old history of PVC ablation Anemia Proteinuria Cardiac suggestion for management: Managed on telemetry Follow-up electrolytes and kidney function tests and correct abnormalities cardiac catheterization Further evaluation and management depends on the above and clinical course A total of 55 minutes was spent reviewing the patient record, examining the patient, making a diagnostic and therapeutic plan, discussing this plan with medical personnel, following up on diagnostic studies and following the patient for clinical stability excluding any and all procedures. At least 50% of this time was spent in direct, [id number] contact. Thank you for allowing me to participate in this patient's care. Further recommendations will depend on patient's clinical course. Please do not hesitate to contact me if you have any questions or concerns. This medical document was created using electronic medical record system with [employer] computerized dictation system. Although this document has been carefully reviewed, there may still be some phonetic and typographical errors. These areas are purely typographical due to the imperfection of the software programs, and do not reflect any compromise in the patient's medical care. Plan discussed with: Patient, Other (nurse) JEFFREY RUDOLPH MD Dec 04, 2024 07:50
[2024-12-04] MEDS: VERAPAMIL 2.5MG/ML INJ 2ML VIAL IV ONE (08:53)
[2024-12-04] MEDS: ANGIOMAX 250 MG VIAL IV ONE (08:53)
[2024-12-04] MEDS: fentaNYL CITRATE 100 MCG/2 ML VL ONE ×2 (08:53→09:23)
[2024-12-04] MEDS: MIDAZOLAM HCL 2MG/2ML 2ml VIAL (1mg/ml) ONE ×2 (08:53→09:24)
[2024-12-04] MEDS: LIDOCAINE 2%HCL (LOCAL ANESTH.) INJ 20ML MDV ONE (08:54)
[2024-12-04] MEDS: SODIUM CHL 0.9% 0 ML ONE (08:54)
[2024-12-04] MEDS: HYDROmorphone HCL 2 MG/ML VL/or syr ONE (09:23)
[2024-12-04 09:37] LABS: Anisocytosis Moderate
[2024-12-04 09:38] LABS: Large Platelets FEW; Platelet Estimate Adequa
--- NOTE | 2024-12-04 10:00 | DVHOP2 ---
Operative Report Procedures performed: Left heart catheterization and bilateral coronary angiogram Moderate sedation Diagnosis: No angiographic evidence for epicardial coronary artery disease (normal coronaries) LVEF of 55% with normal EDP Cardiac suggestion for management: Optimized medical therapy Lifestyle and risk factor modifications Findings: LVEF: 55% EDP: 4 mm Hg There was no transaortic valve pressure gradient Left main: Left main was coming off the left sinus of Valsalva. There was no angiographic evidence of disease in left main. LAD: LAD was coming off the left main. It provided a large D1, small D2 and medium-sized D3. LAD throughout its course and branches did not reveal any angiographic evidence of disease. It was somehow tortuous. LCX: LCX was a large caliber vessel coming off the left main. It continued itself as a large obtuse marginal. LCX throughout its course and branches did not reveal any angiographic evidence of disease. RCA: RCA was coming off the right sinus of Valsalva. It was the dominant vessel and provided RPDA. RCA throughout its course and branches did not reveal any angiographic evidence of disease. Presentation: Patient is a 49-year-old female who presented to the hospital with chest discomfort. Does have history of lupus and degenerative disc disease. There is question if patient had myocardial infarction before. High sensitive Troponin was mildly elevated and there was a question about non- STEMI/unstable angina. Patient was sent for cardiac catheterization. Procedure: After obtaining informed consent, the patient was brought to the laborer beam house. She was prepped and draped in sterile fashion. Right radial artery was used for access site. 1 mg of Versed and 50 mcg of fentanyl were used for moderate sedation. Using modified Seldinger technique, the right radial artery was accessed and a 6 Telugu slender sheath was inserted into it. 2.5 mg of verapamil and 100 mcg of nitroglycerin were given as a cocktail into right radial sheath. 3600 units of heparin was given peripherally. A 5 Telugu tiger 4 diagnostic catheter was used to perform left heart catheterization (obtaining pressures and performing left ventriculography) and left coronary angiography. We did use different catheters to access the right coronary artery. Rindge 4 diagnostic catheter and JR4 diagnostic catheter were unsuccessful to access the right coronary system. We were successful to use 3DRC (6 Telugu) catheter for nonselective coronary angiography (right coronary). There was no indication for any transcatheter revascularization. There was no dissection/hematoma/perforati on. Patient tolerated the procedure with no complication. Right radial artery access site was managed by deploying a TR band. Fluoroscopy time: 7.1 minutes contrast: 60 mL of JEFFREY Elliott MD Dec 04, 2024 10:00
[2024-12-04] MEDS: HEPARIN SODIUM (PORCINE) 5000 UNITS/ML 1ML VIAL ONE (10:14)
--- NOTE | 2024-12-04 10:25 | DVHPN2 ---
Subjective Status post heart catheterization negative Changes from previous H/P or p: Changes Eyes: No Pain, No Vision change, No Conjunctivae inflammation, No Eyelid inflammation, No Other, No Redness ENT: No Ear pain, No Ear discharge, No Nose pain, No Nose discharge, No Nose congestion, No Mouth pain, No Mouth swelling, No Throat pain, No Throat swelling, No Other Cardiovascular: Chest Pain, Palpitations; No Orthopnea, No Paroxysmal Noc. Dyspnea, No Edema, No Lt Headedness, No Other Respiratory: No Cough, No Dry, No Shortness of breath, No SOB with excertion, No Wheezing, No Hemoptysis, No Pleuritic Pain, No Sputum, No Other Gastrointestinal: Nausea, Vomiting; No Abdominal Pain, No Diarrhea, No Constipation, No Melena, No Hematochezia, No Other Genitourinary: No Dysuria, No Frequency, No Incontinence, No Hematuria, No Retention, No Other Musculoskeletal: No other, No neck pain, No shoulder pain, No arm pain, No back pain, No hand pain, No leg pain, No foot pain Skin: No Rash, No Lesions, No Jaundice, No Bruising, No Other Objective Vitals Vital Signs Date Time Temp Pulse Resp B/P (MAP) Pulse Ox O2 Delivery O2 Flow Rate FiO2 12/04/24 09:00 98.2 97 16 85/54 (64) 94 98.2 12/03/24 20:00 Room Air* 0 21 Intake/Output Intake and Output 12/04/24 07:00 Intake Total 380 ml Balance 380 ml Intake Oral 380 ml # Voids 6 General Appearance: Alert, Oriented X3, Cooperative, No acute distress Lungs: Clear to auscultation, Normal air movement Cardiovascular: Regular rate, Normal S1, Normal S2 Abdomen: Normal bowel sounds, Soft, No tenderness Extremities: No edema Medications Current Medications Medications Dose Ordered Sig/Frederick Route Start Time Stop Time Status Last Admin Dose Admin Acetaminophen/ Hydrocodone Bitart 1 tab Q4HP PRN PO 12/03/24 07:30 Ondansetron HCl 4 mg Q4HP PRN IV 12/03/24 07:30 12/04/24 05:37 4 MG Acetaminophen 650 mg Q6HP PRN PO 12/03/24 07:30 12/03/24 21:31 650 MG Morphine Sulfate 2 mg Q4HPRN PRN IV 12/03/24 07:30 12/04/24 05:40 2 MG Nitroglycerin 0.4 mg Q5MINP PRN SL 12/03/24 07:30 Morphine Sulfate 2 mg Q30M PRN IV 12/03/24 07:30 12/03/24 17:14 2 MG Aspirin 81 mg DAILY PO 12/03/24 10:00 Atorvastatin Calcium 80 mg HS PO 12/03/24 22:00 Duloxetine HCl 60 mg BID PO 12/03/24 22:00 Trazodone HCl 150 mg HS PO 12/03/24 22:00 12/03/24 21:31 150 MG Gabapentin 800 mg TID PO 12/03/24 14:00 12/03/24 17:14 800 MG Colchicine 0.6 mg DAILY PO 12/04/24 10:15 UNV Laboratory Results Laboratory Tests 12/04/24 06:00 Chemistry Test 12/04/24 06:00 Albumin 4.1 g/dL (3.2-4.8) Calcium Level 9.7 mg/dL (8.7-10.4) Total Protein 7.1 g/dL (5.7-8.2) Coagulation Test 12/04/24 06:00 Prothrombin Time 10.9 sec (9.3-11.8) Prothrombin Time INR 1.03 (0.9-1.15) Activated Partial Thromboplast Time 21.9 SEC (24.5-34.5) L LFT Test 12/04/24 06:00 Alanine Aminotransferase (ALT) 45 U/L (7-40) H Alkaline Phosphatase 87 U/L (46-116) Aspartate Amino Transferase (AST) 44 U/L (13-40) H Total Bilirubin 0.5 mg/dL (0.2-1.0) Assessment/Plan Assessment/Plan Chest pain NSTEMI type 2 Lupus Fibromyalgia [place] Cardiac ablation x2 Mixed hyperlipidemia PLAN: 12/03/2024: DC IV fluids Aspirin Lipitor Duloxetine Tazodone Gabapentin Echo Cardiology consult D-Dimer neg Possible heart cath by Dr. Moss Full code Advance directives discussed x 18 minutes 12/04/2024: Heart catheterization was normal no coronary disease Medical management is advised Aspirin Lipitor Hypotension: Blood pressure is on the low side, give IV fluids overnight Monitor closely overnight and check her creatinine in the morning Plan discussed with: Patient My Orders Orders - JAYJAY GAONA MD Procedure Category Date Status Time Duloxetine Hcl PHA 12/03/24 In Process Capsule (Cymbalta 22:00 Trazodone Hcl PHA 12/03/24 In Process (Desyrel) 22:00 Gabapentin Capsule PHA 12/03/24 In Process (Neurontin Capsule) 14:00 Date of Service: Dec 04, 2024 Billing Provider: JAYJAY GAONA MD Common Visit Codes: [id number] INP/OBS CARE(HIGH) JAYJAY GAONA MD Dec 04, 2024 10:25
[2024-12-04] MEDS: SODIUM CHLORIDE 0.9% 1,000 ML IV SCH (10:30)
[2024-12-04] MEDS: COLCHICINE 0.6 MG CAP PO SCH (12:16)
[2024-12-04] MEDS: HYDROcodone-ACET 5/325MG TAB PO PRN (17:32)
[2024-12-05] VITALS (9 sets, daily range): BP systolic 92–117; BP diastolic 60–77; PULSE 60–90; RESP 17–18; TEMP 97.7–98.1; O2SAT 95–99
[2024-12-05 07:16] LABS: Albumin 4.1 g/dL (3.2-4.8); Alkaline Phosphatase 82 U/L (46-116); Anion Gap 6 (5-15); Aspartate Aminotransferase 38 U/L (13-40); BUN/Creatinine Ratio 19.1 (10.0-20.0); Bilirubin, Total 0.4 mg/dL (0.2-1.0); Blood Urea Nitrogen 17 mg/dL (9-23); Calcium 9.4 mg/dL (8.7-10.4); Carbon Dioxide 25 mmol/L (20-31); Chloride 105 mmol/L (98-107); Glucose 82 mg/dL (74-106); Sodium 136 mmol/L (136-145); Total Protein 6.8 g/dL (5.7-8.2)
[2024-12-05 07:18] LABS: Alanine Aminotransferase 42 U/L (7-40)
--- NOTE | 2024-12-05 07:40 | DVHPN2 ---
Progress Note - Dictate Date Seen: Dec 05, 2024 Medical Necessity Reason Pt with a Central, PICC or Fol: No vital signs Vital Sign Date Time Temp Pulse Resp B/P (MAP) Pulse Ox O2 Delivery O2 Flow Rate FiO2 12/05/24 06:08 82 20 93/63 12/05/24 05:00 97.8 97 97.8 12/04/24 20:00 Room Air* 0 21 Total Intake and Output 12/04/24 12/04/24 12/05/24 14:59 22:59 06:59 Intake Total 350 ml 0 ml Balance 350 ml 0 ml medications Current Medications Medications Dose Ordered Sig/Frederick Route Start Time Stop Time Status Last Admin Dose Admin Acetaminophen/ Hydrocodone Bitart 1 tab Q4HP PRN PO 12/03/24 07:30 12/04/24 17:32 1 TAB Ondansetron HCl 4 mg Q4HP PRN IV 12/03/24 07:30 12/05/24 06:07 4 MG Acetaminophen 650 mg Q6HP PRN PO 12/03/24 07:30 12/04/24 12:15 650 MG Morphine Sulfate 2 mg Q4HPRN PRN IV 12/03/24 07:30 12/05/24 06:08 2 MG Nitroglycerin 0.4 mg Q5MINP PRN SL 12/03/24 07:30 Morphine Sulfate 2 mg Q30M PRN IV 12/03/24 07:30 12/04/24 19:01 2 MG Aspirin 81 mg DAILY PO 12/03/24 10:00 Atorvastatin Calcium 80 mg HS PO 12/03/24 22:00 12/04/24 21:23 80 MG Duloxetine HCl 60 mg BID PO 12/03/24 22:00 12/04/24 21:23 60 MG Trazodone HCl 150 mg HS PO 12/03/24 22:00 12/04/24 21:23 150 MG Gabapentin 800 mg TID PO 12/03/24 14:00 12/05/24 05:34 800 MG Colchicine 0.6 mg DAILY PO 12/04/24 10:15 12/04/24 12:16 0.6 MG Sodium Chloride 1,000 ml @ 60 mls/hr [id number] IV 12/04/24 10:30 12/04/24 10:30 60 MLS/HR laboratory and microbiology Laboratory Tests 12/05/24 06:11 12/04/24 06:00 Test 12/05/24 06:11 Range/Units Serum Glucose 82 74-106 mg/dL Assessment/Plan Patient is a 49-year-old female who presented with 1 day of chest discomfort, nausea/vomiting and back pain. She is experiencing her menstrual period. She denies having/discomforts before. Cardiology was involved for cardiac catheterization with self-care. Patient is known to our practice from outside. Patient does have old history of repeated PVC ablation many years ago. She also had a nuclear stress test in August 2023 which questioned inferior wall [place]. she stopped smoking over 15 years ago. She denies drug abuse. She has been experiencing left lower extremity pain and discomfort and swelling for months. Not in acute distress. Lying flat bed. No JVD. Mucosa is pink and wet. No carotid bruit. Not using accessory muscles of breathing. Lungs are clear to auscultation. Cardiac: Regular, no thrill/gallop. Systolic murmur in the apex is heard. Abdomen is soft. There is no tenderness. Bowel sound is positive. Extremities do not reveal edema. Past medical history includes lupus, old history of repeated ablation for frequent PVC, old history of cholecystectomy/, fibromyalgia, anemia, proteinuria and questionable history of myocardial infarction (nuclear stress test, performed in the office, in August 2023 had questioned previous inferior wall [place]). Does have positive family for coronary artery disease. Creatinine: 0.83 - 0.87 - 0.89 Potassium: 4.4 - 4.0 - 4.0 Troponin (high sensitive): 88 - 119 - 168 - 230 - 260 - 265 BNP: 16.71 D-dimer: 0.43 TSH: 1.96 Urine toxicology was positive for opiates D-dimer: 0.43 Chest x-ray revealed: IMPRESSION: 1. No acute cardiopulmonary disease. EKG revealed sinus rhythm with questionable old septal [place], no specific ST-T changes Tele reveals sinus rhythm Echocardiogram revealed: Left ventricle: Right ventricle was normal-sized. LVEF was around 55-60%. Can not rule out anteroseptal hypokinesia. Right ventricle was normal-sized with normal systolic function. Both atria were normal-sized. Aortic valve was not well visualized. There was no aortic insufficiency/stenosis. There was no mitral regurgitation. There was trivial tricuspid regurgitation. Pulmonary valve was not well visualized. As there was no good tricuspid regurgitation jet, right ventricular systolic pressure could not be estimated. There was no pericardial effusion. Left heart cath was performed and ruled out significant coronary artery disease. Cardiac suggestion for management: Optimized medical therapy Lifestyle and risk factor modifications Patient is a 49-year-old female who presented with back pain, chest pain, nausea and vomiting. Does have old history of questionable myocardial infarction. Does have positive family history for coronary artery disease. It is of note that the patient does have lupus and gets IVIG treatment every 2 weeks. She is found to have somehow abnormal troponin. NSTEMI/unstable angina were ruled out after LHC. Chest pain Abnormal troponin non-stemi Lupus Fibromyalgia Old history of PVC ablation Anemia Proteinuria Cardiac suggestion for management: Optimized medical therapy Follow-up electrolytes and kidney function tests and correct abnormalities To add Colchicine Cardiac tran, can be followed as outpatient. Further evaluation and management depends on the above and clinical course A total of 55 minutes was spent reviewing the patient record, examining the patient, making a diagnostic and therapeutic plan, discussing this plan with medical personnel, following up on diagnostic studies and following the patient for clinical stability excluding any and all procedures. At least 50% of this time was spent in direct, [id number] contact. Thank you for allowing me to participate in this patient's care. Further recommendations will depend on patient's clinical course. Please do not hesitate to contact me if you have any questions or concerns. This medical document was created using electronic medical record system with [employer] computerized dictation system. Although this document has been carefully reviewed, there may still be some phonetic and typographical errors. These areas are purely typographical due to the imperfection of the software programs, and do not reflect any compromise in the patient's medical care. Plan discussed with: Patient, Other (nurse) JEFFREY RUDOLPH MD Dec 05, 2024 07:40
--- NOTE | 2024-12-05 11:02 | ECG ---
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
--- NOTE | 2024-12-05 11:02 | ECG ---
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
--- NOTE | 2024-12-05 11:02 | ECG ---
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
[2024-12-05] MEDS ORDERED: COLC1CAP PO (12:54)
--- NOTE | 2024-12-05 12:58 | DVHDS2 ---
Discharge Summary Date of Admission Dec 03, 2024 at 07:28 Date of Discharge: Dec 05, 2024 Labs/Diagnostic Data: Laboratory Results Test 12/05/24 06:11 12/04/24 06:00 12/03/24 17:56 12/03/24 09:40 Sodium Level 136 mmol/L (136-145) Potassium Level 4.0 mmol/L (3.5-5.1) Chloride Level 105 mmol/L (98-107) Carbon Dioxide Level 25 mmol/L (20-31) Anion Gap 6 (5-15) Blood Urea Nitrogen 17 mg/dL (9-23) Creatinine 0.89 mg/dL (0.550-1.02) Glomerular Filtration Rate Calc 80 mL/min (>90) BUN/Creatinine Ratio 19.1 (10.0-20.0) Serum Glucose 82 mg/dL (74-106) Calcium Level 9.4 mg/dL (8.7-10.4) Total Bilirubin 0.4 mg/dL (0.2-1.0) Aspartate Amino Transferase (AST) 38 U/L (13-40) Alanine Aminotransferase (ALT) 42 U/L (7-40) Alkaline Phosphatase 82 U/L (46-116) Total Protein 6.8 g/dL (5.7-8.2) Albumin 4.1 g/dL (3.2-4.8) White Blood Count 6.2 10^3/uL (4.4-10.8) Red Blood Count 5.51 10^6/uL (4.0-5.20) Hemoglobin 15.5 g/dL (12.2-16.2) Hematocrit 47.3 % (36.0-46.0) Mean Corpuscular Volume 85.9 fL (80.0-100.0) Mean Corpuscular Hemoglobin 28.2 pg (28.0-32.0) Mean Corpuscular Hemoglobin Concent 32.8 g/dL (32.0-36.0) Red Cell Distribution Width 31.7 % (11.8-14.3) Platelet Count 166 10^3/uL (140-450) Mean Platelet Volume 9.1 fL (6.9-10.8) Neutrophils (%) (Auto) 65.1 % (37.0-80.0) Lymphocytes (%) (Auto) 24.0 % (10.0-50.0) Monocytes (%) (Auto) 9.2 % (0.0-12.0) Eosinophils (%) (Auto) 0.7 % (0.0-7.0) Basophils (%) (Auto) 1.0 % (0.0-2.0) Neutrophils # (Auto) 4.0 10 ^3/uL (1.6-8.6) Lymphocytes # (Auto) 1.5 10 ^3/uL (0.4-5.4) Monocytes # (Auto) 0.6 10 ^3/uL (0-1.3) Eosinophils # (Auto) 0 10 ^3/uL (0-0.8) Basophils # (Auto) 0.1 10 ^3/uL (0-0.2) Nucleated Red Blood Cells 0.2 % Platelet Estimate [place] Large Platelets Few Anisocytosis (manual) Moderate Prothrombin Time 10.9 sec (9.3-11.8) Prothrombin Time INR 1.03 (0.9-1.15) Activated Partial Thromboplast Time 21.9 SEC (24.5-34.5) Troponin I High Sensitivity 265 ng/L (</=34) Urine Opiates Screen Pos (NEGATIVE) Urine Fentanyl Screen Neg (NEGATIVE) Urine Barbiturates Screen Neg (NEGATIVE) Urine Phencyclidine Screen Neg (NEGATIVE) Urine Amphetamines Screen Neg (NEGATIVE) Urine Benzodiazepines Screen Neg (NEGATIVE) Urine Cocaine Screen Neg (NEGATIVE) Urine Cannabinoids Screen Neg (NEGATIVE) Test 12/03/24 05:35 12/03/24 03:34 12/03/24 02:35 D-Dimer, Quantitative 0.43 mg/L FEU (0.0-0.49) Triglycerides Level 83 mg/dL (< 150) Cholesterol Level 188 mg/dL (< 200) LDL Cholesterol 107 mg/dL (< 100) HDL Cholesterol 70 mg/dL (40-59) Thyroid Stimulating Hormone (TSH) 1.96 uIU/mL (0.55-4.78) Target Cells Few Schistocytes Few B-Type Natriuretic Peptide 16.71 pg/mL (0-100) Other Laboratory Tests 12/05/24 06:11 12/04/24 06:00 Brief Hx & Hospital Course: Final diagnoses: Chest pain, atypical, could be due to underlying pericarditis due to lupus Possible underlying pericarditis due to lupus NSTEMI type 2 Lupus Fibromyalgia [place] Cardiac ablation x2 Mixed hyperlipidemia She was admitted and was seen by Cardiology and had an angiogram done which was negative for coronary artery disease Echocardiogram was done which with a normal ejection fraction She says she is still having some chest pain therefore another EKG was done today and was compared to the one from yesterday and Dr. Moss looked at it and there is no change Her chest pain could be due to underlying pericarditis Dr. Moss recommended to give colchicine She will be given colchicine 0.6 mg twice a day for 3 days and then follow up as an outpatient Continue the other home medications Condition at Discharge: Stable Final Diagnosis/Problems List Chest pain, atypical could be musculoskeletal versus underlying pericarditis due to lupus Possible pericarditis due to lupus NSTEMI type 2 Lupus Fibromyalgia [place] Cardiac ablation x2 Mixed hyperlipidemia Discharge Disposition: Home SNF Discharge Will this Physician continue t: No Discharge Statement: "Patient was advised to return to the ER or call 911 if any headaches, dizziness, shortness of breath, chest pain, abdominal pain, bleeding, fevers, or worsening of medical condition. Patient was counseled about treatment plan, medications, possible side effects, patientverbalized understanding. All questions were answered to the best of my ability. This discharge took greater then 30 minutes in planning, reviewing documentation, counseling the patient, and discussing with other team members." ASSESSMENT ASSESSMENT Assessment Date of Service: Dec 05, 2024 Billing Provider: JAYJAY GAONA MD Common Visit Codes: 60607-ADA/OBS DISCH DAY >30min JAYJAY GAONA MD Dec 05, 2024 12:58
[2024-12-06 01:00] VITALS: BP 85/47; PULSE 63; RESP 18; TEMP 97.7; O2SAT 96
[2024-12-06 05:00] VITALS: BP 100/69; PULSE 63; RESP 17; TEMP 97.5; O2SAT 95
--- NOTE | 2024-12-06 06:06 | DVHPN2 ---
Progress Note - Dictate Date Seen: Dec 06, 2024 Medical Necessity Reason Pt with a Central, PICC or Fol: No vital signs Vital Sign Date Time Temp Pulse Resp B/P (MAP) Pulse Ox O2 Delivery O2 Flow Rate FiO2 12/06/24 05:00 97.5 63 17 100/69 (79) 95 97.5 12/05/24 20:00 Room Air* 0 21 Total Intake and Output 12/05/24 12/05/24 12/06/24 15:00 23:00 07:00 Intake Total 760 ml 600 ml Balance 760 ml 600 ml medications Current Medications Medications Dose Ordered Sig/Frederick Route Start Time Stop Time Status Last Admin Dose Admin Acetaminophen/ Hydrocodone Bitart 1 tab Q4HP PRN PO 12/03/24 07:30 12/05/24 20:32 1 TAB Ondansetron HCl 4 mg Q4HP PRN IV 12/03/24 07:30 12/05/24 06:07 4 MG Acetaminophen 650 mg Q6HP PRN PO 12/03/24 07:30 12/04/24 12:15 650 MG Morphine Sulfate 2 mg Q4HPRN PRN IV 12/03/24 07:30 12/05/24 06:08 2 MG Nitroglycerin 0.4 mg Q5MINP PRN SL 12/03/24 07:30 Morphine Sulfate 2 mg Q30M PRN IV 12/03/24 07:30 12/05/24 18:01 2 MG Aspirin 81 mg DAILY PO 12/03/24 10:00 12/05/24 09:32 81 MG Atorvastatin Calcium 80 mg HS PO 12/03/24 22:00 12/05/24 22:21 80 MG Duloxetine HCl 60 mg BID PO 12/03/24 22:00 12/05/24 22:21 60 MG Trazodone HCl 150 mg HS PO 12/03/24 22:00 12/05/24 22:21 150 MG Gabapentin 800 mg TID PO 12/03/24 14:00 12/05/24 22:21 800 MG Colchicine 0.6 mg DAILY PO 12/04/24 10:15 12/05/24 09:32 0.6 MG Sodium Chloride 1,000 ml @ 60 mls/hr [id number] IV 12/04/24 10:30 12/05/24 14:51 60 MLS/HR laboratory and microbiology Laboratory Tests 12/05/24 06:11 12/04/24 06:00 Test 12/05/24 06:11 Range/Units Serum Glucose 82 74-106 mg/dL Assessment/Plan Patient is a 49-year-old female who presented with 1 day of chest discomfort, nausea/vomiting and back pain. She is experiencing her menstrual period. She denies having/discomforts before. Cardiology was involved for cardiac catheterization with self-care. Patient is known to our practice from outside. Patient does have old history of repeated PVC ablation many years ago. She also had a nuclear stress test in August 2023 which questioned inferior wall [place]. she stopped smoking over 15 years ago. She denies drug abuse. She has been experiencing left lower extremity pain and discomfort and swelling for months. Not in acute distress. Lying flat bed. No JVD. Mucosa is pink and wet. No carotid bruit. Not using accessory muscles of breathing. Lungs are clear to auscultation. Cardiac: Regular, no thrill/gallop. Systolic murmur in the apex is heard. Abdomen is soft. There is no tenderness. Bowel sound is positive. Extremities do not reveal edema. Past medical history includes lupus, old history of repeated ablation for frequent PVC, old history of cholecystectomy/, fibromyalgia, anemia, proteinuria and questionable history of myocardial infarction (nuclear stress test, performed in the office, in August 2023 had questioned previous inferior wall [place]). Does have positive family for coronary artery disease. Creatinine: 0.83 - 0.87 - 0.89 Potassium: 4.4 - 4.0 - 4.0 Troponin (high sensitive): 88 - 119 - 168 - 230 - 260 - 265 BNP: 16.71 D-dimer: 0.43 TSH: 1.96 Urine toxicology was positive for opiates D-dimer: 0.43 Chest x-ray revealed: IMPRESSION: 1. No acute cardiopulmonary disease. EKG revealed sinus rhythm with questionable old septal [place], no specific ST-T changes Tele reveals sinus rhythm Echocardiogram revealed: Left ventricle: Right ventricle was normal-sized. LVEF was around 55-60%. Can not rule out anteroseptal hypokinesia. Right ventricle was normal-sized with normal systolic function. Both atria were normal-sized. Aortic valve was not well visualized. There was no aortic insufficiency/stenosis. There was no mitral regurgitation. There was trivial tricuspid regurgitation. Pulmonary valve was not well visualized. As there was no good tricuspid regurgitation jet, right ventricular systolic pressure could not be estimated. There was no pericardial effusion. Left heart cath was performed and ruled out significant coronary artery disease. Cardiac suggestion for management: Optimized medical therapy Lifestyle and risk factor modifications Patient is a 49-year-old female who presented with back pain, chest pain, nausea and vomiting. Does have old history of questionable myocardial infarction. Does have positive family history for coronary artery disease. It is of note that the patient does have lupus and gets IVIG treatment every 2 weeks. She is found to have somehow abnormal troponin. NSTEMI/unstable angina were ruled out after LHC. Chest pain Abnormal troponin non-stemi Lupus Fibromyalgia Old history of PVC ablation Anemia Proteinuria Cardiac suggestion for management: Optimized medical therapy Follow-up electrolytes and kidney function tests and correct abnormalities To add Colchicine Cardiac tran, can be followed as outpatient. Further evaluation and management depends on the above and clinical course A total of 55 minutes was spent reviewing the patient record, examining the patient, making a diagnostic and therapeutic plan, discussing this plan with medical personnel, following up on diagnostic studies and following the patient for clinical stability excluding any and all procedures. At least 50% of this time was spent in direct, [id number] contact. Thank you for allowing me to participate in this patient's care. Further recommendations will depend on patient's clinical course. Please do not hesitate to contact me if you have any questions or concerns. This medical document was created using electronic medical record system with [employer] computerized dictation system. Although this document has been carefully reviewed, there may still be some phonetic and typographical errors. These areas are purely typographical due to the imperfection of the software programs, and do not reflect any compromise in the patient's medical care. Plan discussed with: Patient, Other (nurse) JEFFREY RUDOLPH MD Dec 06, 2024 06:06
[2024-12-06 08:00] VITALS: PULSE 62; PULSE 70; RESP 16; O2SAT 100
[2024-12-06 09:00] VITALS: BP 116/84; PULSE 70; RESP 16; TEMP 97.5; O2SAT 100
--- NOTE | 2024-12-06 10:06 | DVHPN2 ---
Subjective Feels better No chest pain VS stable Changes from previous H/P or p: Changes Eyes: No Pain, No Vision change, No Conjunctivae inflammation, No Eyelid inflammation, No Other, No Redness ENT: No Ear pain, No Ear discharge, No Nose pain, No Nose discharge, No Nose congestion, No Mouth pain, No Mouth swelling, No Throat pain, No Throat swelling, No Other Cardiovascular: Chest Pain, Palpitations; No Orthopnea, No Paroxysmal Noc. Dyspnea, No Edema, No Lt Headedness, No Other Respiratory: No Cough, No Dry, No Shortness of breath, No SOB with excertion, No Wheezing, No Hemoptysis, No Pleuritic Pain, No Sputum, No Other Gastrointestinal: Nausea, Vomiting; No Abdominal Pain, No Diarrhea, No Constipation, No Melena, No Hematochezia, No Other Genitourinary: No Dysuria, No Frequency, No Incontinence, No Hematuria, No Retention, No Other Musculoskeletal: No other, No neck pain, No shoulder pain, No arm pain, No back pain, No hand pain, No leg pain, No foot pain Skin: No Rash, No Lesions, No Jaundice, No Bruising, No Other Objective Vitals Vital Signs Date Time Temp Pulse Resp B/P (MAP) Pulse Ox O2 Delivery O2 Flow Rate FiO2 12/06/24 05:00 97.5 63 17 100/69 (79) 95 97.5 12/05/24 20:00 Room Air* 0 21 Intake/Output Intake and Output 12/06/24 07:00 Intake Total 1360 ml Balance 1360 ml Intake Oral 1360 ml # Voids 5 General Appearance: Alert, Oriented X3, Cooperative, No acute distress Lungs: Clear to auscultation, Normal air movement Cardiovascular: Regular rate, Normal S1, Normal S2 Abdomen: Normal bowel sounds, Soft, No tenderness Extremities: No edema Medications Current Medications Medications Dose Ordered Sig/[place] Route Start Time Stop Time Status Last Admin Dose Admin Acetaminophen/ Hydrocodone Bitart 1 tab Q4HP PRN PO 12/03/24 07:30 12/06/24 09:00 1 TAB Ondansetron HCl 4 mg Q4HP PRN IV 12/03/24 07:30 12/05/24 06:07 4 MG Acetaminophen 650 mg Q6HP PRN PO 12/03/24 07:30 12/04/24 12:15 650 MG Morphine Sulfate 2 mg Q4HPRN PRN IV 12/03/24 07:30 12/05/24 06:08 2 MG Nitroglycerin 0.4 mg Q5MINP PRN SL 12/03/24 07:30 Morphine Sulfate 2 mg Q30M PRN IV 12/03/24 07:30 12/05/24 18:01 2 MG Aspirin 81 mg DAILY PO 12/03/24 10:00 12/06/24 08:59 81 MG Atorvastatin Calcium 80 mg HS PO 12/03/24 22:00 12/05/24 22:21 80 MG Duloxetine HCl 60 mg BID PO 12/03/24 22:00 12/06/24 08:59 60 MG Trazodone HCl 150 mg HS PO 12/03/24 22:00 12/05/24 22:21 150 MG Gabapentin 800 mg TID PO 12/03/24 14:00 12/06/24 06:22 800 MG Colchicine 0.6 mg DAILY PO 12/04/24 10:15 12/06/24 08:59 0.6 MG Sodium Chloride 1,000 ml @ 60 mls/hr [id number] IV 12/04/24 10:30 12/05/24 14:51 60 MLS/HR Laboratory Results Laboratory Tests 12/04/24 06:00 12/05/24 06:11 Assessment/Plan Assessment/Plan Chest pain NSTEMI type 2 Lupus Fibromyalgia [place] Cardiac ablation x2 Mixed hyperlipidemia PLAN: 12/03/2024: DC IV fluids Aspirin Lipitor Duloxetine Tazodone Gabapentin Echo Cardiology consult D-Dimer neg Possible heart cath by Dr. Moss Full code Advance directives discussed x 18 minutes 12/04/2024: Heart catheterization was normal no coronary disease Medical management is advised Aspirin Lipitor Hypotension: Blood pressure is on the low side, give IV fluids overnight Monitor closely overnight and check her creatinine in the morning 12/06/24: DC Home Plan discussed with: Patient My Orders Orders - JAYJAY GAONA MD Procedure Category Date Status Time Electrocardigram EKG 12/05/24 Logged 11:59 Electrocardigram EKG 12/05/24 Logged 18:23 Discharge DISCHARGE 12/06/24 Verified 10:04 Date of Service: Dec 06, 2024 Billing Provider: JAYJAY GAONA MD Common Visit Codes: [id number] INP/OBS CARE(HIGH) JAYJAY GAONA MD Dec 06, 2024 10:06
[2024-12-06 11:00] VITALS: BP 116/86; PULSE 70; RESP 16; TEMP 97.5; O2SAT 100
--- NOTE | 2024-12-07 11:40 | ECG ---
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
--- NOTE | 2024-12-07 11:41 | ECG ---
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
== END 2024-12-06 11:27 | disposition home or self-care (01) | DRG 282 ==
LOC: EDBD 02:18 → ER 02:18 → TELE 07:28 → TELE-CENTR 14:37
PROVIDERS: ADMIT Internal Medicine Geriatric Medicine; ATTEND Internal Medicine Geriatric Medicine
PROC: 4A023N7 Measurement of Cardiac Sampling and Pressure, Left Heart, Percutaneous Approach (ICD-10-PCS; principal; 2024-12-04)
PROC: B211YZZ Fluoroscopy of Multiple Coronary Arteries using Other Contrast (ICD-10-PCS; 2024-12-04)
PROC: B215YZZ Fluoroscopy of Left Heart using Other Contrast (ICD-10-PCS; 2024-12-04)
DX: R07.89 Other chest pain (principal); I21.A1 Myocardial infarction type 2; D64.9 Anemia, unspecified; E78.2 Mixed hyperlipidemia; M79.7 Fibromyalgia; Z79.82 Long term (current) use of aspirin; I25.2 Old myocardial infarction; Z90.49 Acquired absence of other specified parts of digestive tract; Z82.49 Family history of ischemic heart disease and other diseases of the circulatory system; Z87.891 Personal history of nicotine dependence; Z79.899 Other long term (current) drug therapy
CPT/HCPCS: 36415; 71045; 80048; 80053; 80061; 80307; 83880; 84443; 84484; 85025; 85379; 85610; 85730; 93005; 93306; 93458; 96372; 96374; 96375; 96376; 99152; G0378; J1885; J2250; J2405; J3490; Q9967